=== PATIENT | female | born 1990 | race Caucasian/White ===

== ENCOUNTER 2017-01-08 19:47 | Emergency (ER) | payer OTHER ==
[~2017-01-08] VITALS: Ht 162.6 cm; Wt 93.0 kg
[~2017-01-08 19:47] MED LIST: ATIVAN0.5 M1 PO; CAMBIA50 M1 PO; CELEXA10 MG PO; CYCLOBENZAPRINE5 MG PO; NORCO1 TA2 PO
[2017-01-08 23:31] LABS: BASOPHIL % 0.3 % (0-2); PLATELET COUNT 279 x10^3mcL (130-400)
[2017-01-08 23:38] LABS: CARBON DIOXIDE 29.5 mmol/L (21-32); CHLORIDE SERUM 105 mmol/L (98-107); CREATININE SERUM 0.7 mg/dL (0.6-1.0); GFR1 > 60 mL/min; GLUCOSE SERUM 95 mg/dL (74-106); POTASSIUM SERUM 3.8 mmol/L (3.5-5.1); SODIUM SERUM 140 mmol/L (136-145)
[2017-01-08 23:43] LABS: ALBUMIN 3.8 g/dL (3.4-5.0); ALKALINE PHOSPHATASE 68 U/L (46-116); ALT/SGPT 45 U/L (14-59); AMYLASE 49 U/L (25-115); AST/SGOT 23 U/L (15-37); BILIRUBIN TOTAL 0.28 mg/dL (0.20-1.00); LIPASE 87 IU/L (73-393); TOTAL PROTEIN, SERUM 7.2 g/dL (6.4-8.2)
[2017-01-09 00:25] LABS: microscopic required? YES; urine erythrocyte TRACE (NEGATIVE)
[2017-01-09 01:43] VITALS: BP 125/85
== END 2017-01-09 01:43 | disposition home or self-care (01) ==
LOC: ED 19:47
PROVIDERS: Emergency Medicine
DX: R31.29 Other microscopic hematuria (principal); G43.909 Migraine, unspecified, not intractable, without status migrainosus; Z88.0 Allergy status to penicillin; Z88.1 Allergy status to other antibiotic agents; Z90.89 Acquired absence of other organs; Z98.890 Other specified postprocedural states
CPT/HCPCS: J1885; Q0092

== ENCOUNTER 2017-02-08 16:41 | Emergency (ER) | payer OTHER ==
[~2017-02-08] VITALS: Ht 162.6 cm; Wt 92.5 kg
[2017-02-08 18:33] LABS: BASOPHIL % 0.3 % (0-2); PLATELET COUNT 260 x10^3mcL (130-400); RED CELL DISTRIBUTION WIDTH 14.1 % (11.5-14.5)
[2017-02-08 18:44] LABS: CALCIUM 8.9 mg/dL (8.5-10.1); CARBON DIOXIDE 26.8 mmol/L (21-32); CHLORIDE SERUM 104 mmol/L (98-107); CREATININE SERUM 0.6 mg/dL (0.6-1.0); GFR1 > 60 mL/min; GLUCOSE SERUM 86 mg/dL (74-106); POTASSIUM SERUM 3.9 mmol/L (3.5-5.1); SODIUM SERUM 139 mmol/L (136-145)
[2017-02-08 18:48] LABS: ALBUMIN 3.8 g/dL (3.4-5.0); ALKALINE PHOSPHATASE 65 U/L (46-116); ALT/SGPT 43 U/L (14-59); AST/SGOT 14 U/L (15-37); BILIRUBIN TOTAL 0.26 mg/dL (0.20-1.00); CHOLESTEROL 149 mg/dL (<200); CHOLESTEROL/HDL RATIO 5.3; HDL CHOLESTEROL 28 mg/dL (40-60); LIPASE 85 IU/L (73-393); TOTAL PROTEIN, SERUM 7.3 g/dL (6.4-8.2); TRIGLYCERIDES 125 mg/dL (<150)
[2017-02-08 18:59] LABS: T3 TOTAL 1.3 ng/mL
[2017-02-08 19:01] LABS: FREE T4 0.98 ng/dL (0.76-1.46); FREE THYROXINE INDEX 2.6 ug/dL (1.4-4.5)
[2017-02-08 19:15] LABS: UA SPECIFIC GRAVITY 1.015 (1.005-1.035); microscopic required? YES; urine erythrocyte NEGATIVE (NEGATIVE)
[2017-02-08 19:24] LABS: AMPHETAMINE QUAL UR NONE DETECTED (NEG <=1000)
[2017-02-08 22:00] VITALS: BP 119/70
== END 2017-02-08 22:00 | disposition home or self-care (01) ==
LOC: ED 16:41
PROVIDERS: Specialist
DX: R07.89 Other chest pain (principal); R06.02 Shortness of breath; R00.2 Palpitations; G43.909 Migraine, unspecified, not intractable, without status migrainosus; F41.9 Anxiety disorder, unspecified
CPT/HCPCS: 80307; 83880; 84439; 85378; J7030; Q0092

== ENCOUNTER 2017-08-12 10:53 | Emergency (ER) | payer OTHER ==
[~2017-08-12] VITALS: Ht 162.6 cm; Wt 81.2 kg
[2017-08-12 13:14] LABS: microscopic required? NO
[2017-08-12 13:17] LABS: BASOPHIL % 0.4 % (0-2); PLATELET COUNT 273 x10^3mcL (130-400); RED CELL DISTRIBUTION WIDTH 12.9 % (11.5-14.5)
[2017-08-12 13:23] VITALS: BP 124/81
[2017-08-12 13:31] LABS: CALCIUM 8.7 mg/dL (8.5-10.1); CARBON DIOXIDE 29.2 mmol/L (21-32); CHLORIDE SERUM 105 mmol/L (98-107); CREATININE SERUM 0.7 mg/dL (0.6-1.0); GFR1 > 60 mL/min; GLUCOSE SERUM 82 mg/dL (74-106); SODIUM SERUM 141 mmol/L (136-145)
[2017-08-12 13:35] LABS: UA SPECIFIC GRAVITY 1.025 (1.005-1.035); urine erythrocyte NEGATIVE (NEGATIVE)
[2017-08-12 13:36] LABS: ALBUMIN 3.7 g/dL (3.4-5.0); ALKALINE PHOSPHATASE 67 U/L (46-116); ALT/SGPT 25 U/L (14-59); AMYLASE 43 U/L (25-115); AST/SGOT 14 U/L (15-37); BILIRUBIN TOTAL 0.4 mg/dL (0.20-1.00); CHOLESTEROL 169 mg/dL (<200); LIPASE 100 IU/L (73-393); TOTAL PROTEIN, SERUM 7.4 g/dL (6.4-8.2)
[2017-08-12 13:38] LABS: HDL CHOLESTEROL 34 mg/dL (40-60)
== END 2017-08-12 14:45 | disposition home or self-care (01) ==
LOC: ED 10:53
PROVIDERS: Emergency Medicine
DX: R10.11 Right upper quadrant pain (principal); M54.9 Dorsalgia, unspecified; Z88.0 Allergy status to penicillin; Z90.89 Acquired absence of other organs; G43.909 Migraine, unspecified, not intractable, without status migrainosus; Z90.49 Acquired absence of other specified parts of digestive tract
CPT/HCPCS: J0500; J1885; J7030; Q0092

== ENCOUNTER 2018-03-15 12:19 | Emergency (ER) | payer OTHER ==
[~2018-03-15] VITALS: Ht 162.6 cm; Wt 77.8 kg
[2018-03-15 12:25] VITALS: Ht 162.6 cm; Wt 77.8 kg
[2018-03-15 13:29] LABS: BASOPHIL % 0.4 % (0-2); PLATELET COUNT 248 x10^3mcL (130-400); RED CELL DISTRIBUTION WIDTH 13.5 % (11.5-14.5)
[2018-03-15 13:57] LABS: FREE T4 0.97 ng/dL (0.76-1.46); FREE THYROXINE INDEX 2.8 ug/dL (1.4-4.5)
[2018-03-15 14:20] LABS: AMPHETAMINE QUAL UR NONE DETECTED (See below)
[2018-03-15 14:23] LABS: ALBUMIN 3.8 g/dL (3.4-5.0); ALKALINE PHOSPHATASE 52 U/L (46-116); ALT/SGPT 25 U/L (14-59); AST/SGOT 12 U/L (15-37); BILIRUBIN TOTAL 0.44 mg/dL (0.20-1.00); CALCIUM 8.9 mg/dL (8.5-10.1); CARBON DIOXIDE 23.5 mmol/L (21-32); CHLORIDE SERUM 106 mmol/L (98-107); CREATININE SERUM 0.6 mg/dL (0.6-1.0); GFR1 > 60 mL/min; GLUCOSE SERUM 84 mg/dL (74-106); MAGNESIUM 1.8 mg/dL (1.8-2.4); POTASSIUM SERUM 3.4 mmol/L (3.5-5.1); SODIUM SERUM 142 mmol/L (136-145); TOTAL PROTEIN, SERUM 7.2 g/dL (6.4-8.2)
[2018-03-15 14:36] LABS: T3 TOTAL 1.29 ng/mL
[2018-03-15 16:00] VITALS: BP 122/60
== END 2018-03-15 16:00 | disposition home or self-care (01) ==
LOC: ED 12:19
PROVIDERS: Emergency Medicine
DX: R07.89 Other chest pain (principal); R00.2 Palpitations; R51 Headache; Z90.89 Acquired absence of other organs; Z90.49 Acquired absence of other specified parts of digestive tract; Z88.0 Allergy status to penicillin; Z88.1 Allergy status to other antibiotic agents
CPT/HCPCS: 83880; 84439; 85378; J7030; Q0092

== ENCOUNTER 2018-05-29 16:51 | Emergency (ER) | payer OTHER ==
[~2018-05-29] VITALS: Ht 162.6 cm; Wt 76.7 kg
[2018-05-29 16:55] VITALS: Ht 162.6 cm; Wt 76.7 kg
[2018-05-29 20:47] LABS: BASOPHIL % 0.3 % (0-2); PLATELET COUNT 258 x10^3mcL (130-400); RED CELL DISTRIBUTION WIDTH 12.8 % (11.5-14.5)
[2018-05-29 20:58] LABS: CALCIUM 9.1 mg/dL (8.5-10.1); CARBON DIOXIDE 24.8 mmol/L (21-32); CHLORIDE SERUM 104 mmol/L (98-107); CREATININE SERUM 0.7 mg/dL (0.6-1.0); GFR1 > 60 mL/min; GLUCOSE SERUM 92 mg/dL (74-106); POTASSIUM SERUM 3.3 mmol/L (3.5-5.1); SODIUM SERUM 140 mmol/L (136-145)
[2018-05-29 21:03] LABS: ALBUMIN 3.9 g/dL (3.4-5.0); ALKALINE PHOSPHATASE 55 U/L (46-116); ALT/SGPT 26 U/L (14-59); AST/SGOT 1 U/L (15-37); BILIRUBIN TOTAL 0.42 mg/dL (0.20-1.00); LIPASE 87 IU/L (73-393); TOTAL PROTEIN, SERUM 7.5 g/dL (6.4-8.2)
[2018-05-29 21:52] VITALS: BP 126/74
== END 2018-05-29 21:52 | disposition home or self-care (01) ==
LOC: ED 16:51
PROVIDERS: Emergency Medicine
DX: R07.89 Other chest pain (principal); R06.02 Shortness of breath; R51 Headache; Z88.0 Allergy status to penicillin; Z88.1 Allergy status to other antibiotic agents; Z90.89 Acquired absence of other organs
CPT/HCPCS: 36415; 85378; J1885; Q0092; Q0162

== ENCOUNTER 2018-08-08 18:32 | Emergency (ER) | payer OTHER ==
[~2018-08-08] VITALS: Ht 162.6 cm; Wt 78.5 kg
[2018-08-08 18:51] VITALS: Ht 162.6 cm; Wt 78.5 kg
[2018-08-08 20:42] LABS: BASOPHIL % 0.2 % (0-2); PLATELET COUNT 275 x10^3mcL (130-400); RED CELL DISTRIBUTION WIDTH 13.7 % (11.5-14.5)
[2018-08-08 21:00] LABS: CALCIUM 9.3 mg/dL (8.5-10.1); CARBON DIOXIDE 30.2 mmol/L (21-32); CHLORIDE SERUM 105 mmol/L (98-107); CREATININE SERUM 0.7 mg/dL (0.6-1.0); GFR1 > 60 mL/min; GLUCOSE SERUM 96 mg/dL (74-106); POTASSIUM SERUM 3.8 mmol/L (3.5-5.1); SODIUM SERUM 138 mmol/L (136-145)
[2018-08-08 21:37] VITALS: BP 126/85
== END 2018-08-08 21:37 | disposition home or self-care (01) ==
LOC: ED 18:32
PROVIDERS: Emergency Medicine
DX: R42 Dizziness and giddiness (principal); G43.909 Migraine, unspecified, not intractable, without status migrainosus; Z88.0 Allergy status to penicillin; Z88.1 Allergy status to other antibiotic agents; Z90.89 Acquired absence of other organs
CPT/HCPCS: 36415; J1885; Q0092

== ENCOUNTER 2019-03-15 12:46 | Emergency (ER) | payer OTHER ==
[~2019-03-15] VITALS: Ht 162.6 cm; Wt 78.7 kg
[2019-03-15 12:51] VITALS: Ht 162.6 cm; Wt 78.7 kg
[2019-03-15 14:11] LABS: BASOPHIL % 0.5 % (0-2); CALCIUM 9.4 mg/dL (8.5-10.1); CARBON DIOXIDE 27.1 mmol/L (21-32); CHLORIDE SERUM 106 mmol/L (98-107); CREATININE SERUM 0.6 mg/dL (0.6-1.0); GFR1 > 60 mL/min; GLUCOSE SERUM 109 mg/dL (74-106); PLATELET COUNT 235 x10^3mcL (130-400); POTASSIUM SERUM 4.1 mmol/L (3.5-5.1); SODIUM SERUM 141 mmol/L (136-145)
[2019-03-15 14:16] LABS: ALBUMIN 3.8 g/dL (3.4-5.0); ALKALINE PHOSPHATASE 49 U/L (46-116); ALT/SGPT 27 U/L (14-59); AST/SGOT 9 U/L (15-37); BILIRUBIN TOTAL 0.5 mg/dL (0.20-1.00); TOTAL PROTEIN, SERUM 7.1 g/dL (6.4-8.2)
[2019-03-15 16:08] VITALS: BP 101/60
== END 2019-03-15 16:08 | disposition home or self-care (01) ==
LOC: ED 12:46
DX: R07.89 Other chest pain (principal); R00.2 Palpitations; G43.909 Migraine, unspecified, not intractable, without status migrainosus; Z88.0 Allergy status to penicillin; Z88.1 Allergy status to other antibiotic agents; Z90.89 Acquired absence of other organs; Z98.890 Other specified postprocedural states
CPT/HCPCS: J1885; J2405; J7030; Q0092

== ENCOUNTER 2019-06-04 09:21 | Emergency (ER) | payer OTHER ==
[~2019-06-04] VITALS: Ht 162.6 cm; Wt 75.3 kg
[2019-06-04 09:47] VITALS: Ht 162.6 cm; Wt 75.3 kg
[2019-06-04 12:24] VITALS: BP 112/75
== END 2019-06-04 12:52 | disposition home or self-care (01) ==
LOC: ED 09:21
DX: S39.012A Strain of muscle, fascia and tendon of lower back, initial encounter (principal); S39.91XA Unspecified injury of abdomen, initial encounter; G43.909 Migraine, unspecified, not intractable, without status migrainosus; Z88.0 Allergy status to penicillin; Z88.1 Allergy status to other antibiotic agents; Z90.89 Acquired absence of other organs; Z98.890 Other specified postprocedural states; V49.9XXA Car occupant (driver) (passenger) injured in unspecified traffic accident, initial encounter; Y93.89 Activity, other specified; Y92.89 Other specified places as the place of occurrence of the external cause; Y99.8 Other external cause status
CPT/HCPCS: J3010